=== PATIENT | male | born 1940 | race Hispanic/Latino ===

== ENCOUNTER → 2017-11-21 | Outpatient (CLI) | payer OTHER ==
[~2017-11-21] MED LIST: CILO50TA PO; CLOP75TA32 PO; EMPA25TA PO; GABA-529 PO; LISI40TA4 PO; METF500T6 PO; SIMV40TA5 PO; SITA100T12 PO
== END | disposition home or self-care (01) ==
LOC: RAH 12:23
PROVIDERS: ATTEND Internal Medicine
DX: I73.9 Peripheral vascular disease, unspecified (principal)
CPT/HCPCS: 93925

== ENCOUNTER → 2017-12-03 | Outpatient (CLI) | payer OTHER ==
[~2017-12-03] MED LIST changes: +IOPAMIDOL-370 75 ML VIAL IV ONE; +ISOVUE-370 50ML VIAL IV ONE
== END | disposition home or self-care (01) ==
LOC: RAH 08:21
PROVIDERS: ATTEND Internal Medicine Cardiovascular Disease
DX: I73.9 Peripheral vascular disease, unspecified (principal); I25.10 Atherosclerotic heart disease of native coronary artery without angina pectoris
CPT/HCPCS: 75635; Q9967 ×2

== ENCOUNTER 2017-12-08 13:02 | Emergency (ER) | payer OTHER ==
[2017-12-08] MEDS ORDERED: MORPHINE SULFATE 4 MG/1ML SYG ONE (13:39)
[2017-12-08] MEDS ORDERED: ONDANSETRON HCL 4 MG/2 ML VIAL ONE (13:39)
[2017-12-08 13:41] LABS: BASOPHILS % (AUTO) 0.7 % (0.0-5.0); EOSINOPHILS % (AUTO) 2.8 % (0.0-8.0); HEMATOCRIT 44.3 % (42-54); LYMPHOCYTES % (AUTO) 18.3 % (21.0-51.0); MEAN CORPUSCULAR HEMOGLOBIN 31.7 pg (27.0-33.0); MEAN CORPUSCULAR HGB CONC 34.4 g/dL (32.0-36.0); MEAN CORPUSCULAR VOLUME 92.2 fL (79-99); MONOCYTES % (AUTO) 8.1 % (3.0-13.0); NEUTROPHILS % (AUTO) 70.1 % (40.0-77.0); PLATELET COUNT (AUTO) 188 K/uL (130-400); RED CELL DISTRIBUTION WIDTH 13.2 % (11.0-15.5); WHITE BLOOD COUNT (AUTO) 7.9 K/uL (4.8-10.8)
[2017-12-08 13:50] LABS: CREATININE 1.2 mg/dL (0.5-1.5); POTASSIUM 4.4 mmol/L (3.5-5.1)
[2017-12-08 13:52] LABS: INR 0.98 (0.85-1.15); PARTIAL THROMBOPLASTIN TIME 26.8 SEC (26.3-35.5); PROTHROMBIN TIME 10.3 SEC (9.6-11.6)
[2017-12-08 13:55] LABS: ALBUMIN 4.2 g/dL (3.5-5.0); BILIRUBIN,TOTAL 0.5 mg/dL (0.2-1.0); TOTAL PROTEIN, SERUM 7.9 g/dL (6.0-8.3)
[2017-12-19] MEDS ORDERED: CLOP75TA32 PO (09:44)
[2017-12-19] MEDS ORDERED: GABA-529 PO (09:44)
[2017-12-19] MEDS ORDERED: METF500T6 PO (09:44)
[2017-12-19] MEDS ORDERED: SITA100T12 PO (09:44)
[2017-12-19] MEDS ORDERED: CILO50TA PO (09:44)
[2017-12-19] MEDS ORDERED: EMPA25TA PO (09:44)
[2017-12-19] MEDS ORDERED: LISI40TA4 PO (09:44)
[2017-12-19] MEDS ORDERED: SIMV40TA5 PO (09:44)
== END 2017-12-08 16:38 | disposition home or self-care (01) ==
LOC: EDH 13:02
DX: I70.221 Atherosclerosis of native arteries of extremities with rest pain, right leg (principal); F17.210 Nicotine dependence, cigarettes, uncomplicated; E11.9 Type 2 diabetes mellitus without complications; I10 Essential (primary) hypertension
CPT/HCPCS: 36415; 80053; 85025; 85610; 85730; 96374; 96375; 99284; J2270; J2405

== ENCOUNTER 2017-12-23 05:46 | Day surgery (SDC) | payer OTHER ==
[2017-12-19 09:27] VITALS: BP 155/71
[2017-12-19 09:32] LABS: BASOPHILS % (AUTO) 0.4 % (0.0-5.0); EOSINOPHILS % (AUTO) 2.5 % (0.0-8.0); HEMATOCRIT 42.2 % (42-54); LYMPHOCYTES % (AUTO) 14.5 % (21.0-51.0); MEAN CORPUSCULAR HGB CONC 34.7 g/dL (32.0-36.0); MEAN CORPUSCULAR VOLUME 92.1 fL (79-99); MONOCYTES % (AUTO) 7.8 % (3.0-13.0); NEUTROPHILS % (AUTO) 74.8 % (40.0-77.0); PLATELET COUNT (AUTO) 187 K/uL (130-400); RED BLOOD CELL COUNT(AUTO) 4.58 MIL/uL (4.50-6.20); RED CELL DISTRIBUTION WIDTH 13.5 % (11.0-15.5); WHITE BLOOD COUNT (AUTO) 8.7 K/uL (4.8-10.8)
[2017-12-19 09:46] LABS: CREATININE 1.2 mg/dL (0.5-1.5); POTASSIUM 4.8 mmol/L (3.5-5.1)
[2017-12-19 09:53] LABS: INR 0.99 (0.85-1.15); PARTIAL THROMBOPLASTIN TIME 25.7 SEC (26.3-35.5); PROTHROMBIN TIME 10.4 SEC (9.6-11.6)
[2017-12-19 09:55] LABS: APPEARANCE,URINE Clear (CLEAR); BILIRUBIN,URINE Negative (NEGATIVE); COLOR,URINE Yellow (YELLOW); GLUCOSE, URINE (UA) >=1000 mg/dL (NEGATIVE); KETONES,URINE Negative (NEGATIVE); LEUKOCYTE ESTERASE ,URINE Negative (NEGATIVE); NITRATE,URINE Negative (NEGATIVE); OCCULT BLOOD,URINE Negative (NEGATIVE); PH,URINE 5.5 (5.0-8.0); PROTEIN,URINE Negative (NEGATIVE); UROBILINOGEN,URINE 0.2 mg/dL (0.2-1.0)
[2017-12-19 10:06] LABS: BACTERIA,URINE Few /HPF (None Seen); MUCUS,URINE Rare LPF (None Seen); SQUAMOUS EPITHELIAL CELL,UR Rare /LPF (0-2); YEAST,URINE BUDDING Many /HPF (None Seen)
[2017-12-23] VITALS (13 sets, daily range): BP systolic 145–168; BP diastolic 59–81
[~2017-12-23] VITALS: Ht 160 cm; Wt 57.2 kg
[~2017-12-23 05:46] MED LIST changes: +ACETAMINOPHEN 325 MG TAB PO PRN; -IOPAMIDOL-370 75 ML VIAL IV ONE; -ISOVUE-370 50ML VIAL IV ONE; +SODIUM CHLORIDE 0.9% 500ML 500 ML IV SCH
[2017-12-23] MEDS ORDERED: SODIUM CHLORIDE 0.9% 1000ML 1,000 ML IV ONE (06:52)
[2017-12-23] MEDS ORDERED: NITROGLYCERIN 5 MG/ML 10 ML VIAL IV ONE (07:14)
[2017-12-23] MEDS ORDERED: LIDOCAINE HCL 2% 20ML ONE (07:14)
[2017-12-23] MEDS ORDERED: ISOVUE-300 100 ML VIAL IV ONE (07:14)
[2017-12-23] MEDS ORDERED: FENTANYL CITRATE PF 50 MCG/1 ML 2ML VIAL ONE (08:08)
[2017-12-23] MEDS ORDERED: MIDAZOLAM HCL 1 MG/ML 2ML VIAL ONE (08:08)
[2017-12-23] MEDS ORDERED: HEPARIN SODIUM 1000UNIT/ML 10ML VIAL ONE (08:16)
[2017-12-23] MEDS ORDERED: SODIUM CHLORIDE 0.9% 1000ML 1,000 ML IV SCH (08:34)
[2017-12-23] MEDS ORDERED: GLUCAGON 1MG KIT 1 MG ML IM PRN (08:45)
[2017-12-23] MEDS ORDERED: METOPROLOL TARTRATE 1 MG/ML 5ML VIAL IV PRN (08:45)
[2017-12-23] MEDS ORDERED: HYDRALAZINE HCL 20 MG/ML VIAL IV PRN (08:45)
[2017-12-23] MEDS ORDERED: DEXTROSE 50%-WATER 50 ML DISP.SYRIN IV PRN (08:45)
[2017-12-23] MEDS ORDERED: NITROGLYCERIN 0.4 MG SL TAB SL PRN (08:45)
[2017-12-23] MEDS ORDERED: INSULIN HUMULIN R 100 UNIT/ML 3ML SQ SCH (11:30)
== END 2017-12-23 13:08 | disposition home or self-care (01) ==
LOC: DAH 05:46
PROVIDERS: ATTEND Internal Medicine Cardiovascular Disease
DX: I70.213 Atherosclerosis of native arteries of extremities with intermittent claudication, bilateral legs (principal); E11.51 Type 2 diabetes mellitus with diabetic peripheral angiopathy without gangrene; I10 Essential (primary) hypertension; E78.00 Pure hypercholesterolemia, unspecified; I25.10 Atherosclerotic heart disease of native coronary artery without angina pectoris; F17.210 Nicotine dependence, cigarettes, uncomplicated; Z79.899 Other long term (current) drug therapy; Z79.01 Long term (current) use of anticoagulants; Z79.84 Long term (current) use of oral hypoglycemic drugs; Z90.49 Acquired absence of other specified parts of digestive tract; Z82.49 Family history of ischemic heart disease and other diseases of the circulatory system
CPT/HCPCS: 36247; 36415; 71045; 75716; 80048; 81001; 82948 ×2; 85025; 85610; 85730; 93005; A4606; C1769; C1893; C1894 ×2; J0360; J1644; J2250; J3010; J3490 ×2; J7030; Q9967; 99152; 99153

== ENCOUNTER 2018-07-18 08:06 | Observation (INO) | payer OTHER ==
[~2018-07-18] VITALS: Ht 160 cm; Wt 56.6 kg
[~2018-07-18 08:06] MED LIST changes: -ACETAMINOPHEN 325 MG TAB PO PRN; +METF-444 PO; -METF500T6 PO; -SODIUM CHLORIDE 0.9% 500ML 500 ML IV SCH
[2018-07-18 08:26] LABS: BASOPHILS % (AUTO) 0.6 % (0.0-5.0); HEMATOCRIT 36.3 % (42-54); MEAN CORPUSCULAR HEMOGLOBIN 31.8 pg (27.0-33.0); MEAN CORPUSCULAR HGB CONC 35.1 g/dL (32.0-36.0); MEAN CORPUSCULAR VOLUME 90.4 fL (79-99); MONOCYTES % (AUTO) 7.5 % (3.0-13.0); NEUTROPHILS % (AUTO) 84.9 % (40.0-77.0); PLATELET COUNT (AUTO) 163 K/uL (130-400); RED BLOOD CELL COUNT(AUTO) 4.01 MIL/uL (4.50-6.20); RED CELL DISTRIBUTION WIDTH 13.1 % (11.0-15.5); WHITE BLOOD COUNT (AUTO) 7.1 K/uL (4.8-10.8)
[2018-07-18 08:41] LABS: CREATININE 1.2 mg/dL (0.5-1.5)
[2018-07-18 08:46] LABS: ALBUMIN 3.3 g/dL (3.5-5.0); BILIRUBIN,TOTAL 0.7 mg/dL (0.2-1.0); TOTAL PROTEIN, SERUM 6.9 g/dL (6.0-8.3)
[2018-07-18 08:59] LABS: INR 1.13 (0.85-1.15); PARTIAL THROMBOPLASTIN TIME 32.7 SEC (26.3-35.5); PROTHROMBIN TIME 11.8 SEC (9.6-11.6)
[2018-07-18 10:22] LABS: APPEARANCE,URINE Cloudy (CLEAR); BILIRUBIN,URINE Negative (NEGATIVE); COLOR,URINE Yellow (YELLOW); GLUCOSE, URINE (UA) 250 mg/dL (NEGATIVE); KETONES,URINE Negative (NEGATIVE); LEUKOCYTE ESTERASE ,URINE Large (NEGATIVE); NITRATE,URINE Negative (NEGATIVE); OCCULT BLOOD,URINE Moderate (NEGATIVE); PH,URINE 6.5 (5.0-8.0); PROTEIN,URINE POS 2+ (NEGATIVE)
[2018-07-18 10:29] LABS: AMPHET/METH SCREEN,URINE NEGATIVE (NEGATIVE); BARBITURATE SCREEN, URINE NEGATIVE (NEGATIVE); BENZODIAZEPINES SCREEN,URINE NEGATIVE (NEGATIVE); CANNABINOID SCREEN,URINE NEGATIVE (NEGATIVE); COCAINE SCREEN,URINE NEGATIVE (NEGATIVE); OPIATE SCREEN,URINE NEGATIVE (NEGATIVE); PHENCYCLIDINE SCREEN,URINE NEGATIVE (NEGATIVE)
[2018-07-18 10:37] LABS: BACTERIA,URINE Moderate /HPF (None Seen); MUCUS,URINE Few LPF (None Seen); SQUAMOUS EPITHELIAL CELL,UR Few /HPF (0-2); WBC,URINE 51-100 /HPF (0-1); YEAST,URINE BUDDING Moderate /HPF (None Seen)
[2018-07-18] MEDS ORDERED: SODIUM CHLORIDE 0.9% 500ML 500 ML IV ONE (10:42)
[2018-07-18] MEDS ORDERED: SODIUM CHLORIDE 0.9% 100 ML IV ONE (10:42)
[2018-07-18] MEDS ORDERED: CEFTRIAXONE SODIUM 1 GM ONE (10:42)
[2018-07-18] MEDS ORDERED: LISINOPRIL 40 MG TABLET PO SCH (12:30)
[2018-07-18] MEDS ORDERED: LISINOPRIL 5 MG TABLET ONE (12:34)
[2018-07-18] MEDS ORDERED: GADODIAMIDE 10 MMOL/20 ML ML IV ONE (12:40)
[2018-07-18] MEDS ORDERED: DEXTROSE 50%-WATER 50 ML DISP.SYRIN IV PRN (13:00)
[2018-07-18] MEDS ORDERED: GLUCAGON 1MG KIT 1 MG ML IM PRN (13:00)
[2018-07-18 16:00] VITALS: BP 155/79
[2018-07-18] MEDS ORDERED: AMLO-343 PO (17:38)
[2018-07-18] MEDS ORDERED: GABAPENTIN 100 MG CAPSULE PO PRN (17:45)
[2018-07-18] MEDS ORDERED: AMLO10TA4 PO (17:46)
[2018-07-18 19:35] VITALS: BP 142/77
[2018-07-18] MEDS: INSULIN R PO SS1 SQ SCH (21:00)
[2018-07-18] MEDS: METFORMIN HCL 500 MG TABLET PO SCH (22:50)
[2018-07-18] MEDS: CILOSTAZOL 100 MG TAB PO SCH (22:50)
[2018-07-18 23:28] VITALS: BP 132/92
[2018-07-19 04:15] VITALS: BP 126/63
[2018-07-19] MEDS: INSULIN R PO SS1 SQ SCH ×4 (06:11→21:00)
[2018-07-19 07:45] VITALS: BP 126/67
[2018-07-19] MEDS: AMLODIPINE BESYLATE 5 MG TAB PO SCH (08:59)
[2018-07-19] MEDS: CILOSTAZOL 100 MG TAB PO SCH ×2 (08:59→21:17)
[2018-07-19] MEDS: SIMVASTATIN 20 MG TABLET PO SCH (09:00)
[2018-07-19] MEDS: EMPAGLIFLOZIN 25 MG PO SCH (09:00)
[2018-07-19] MEDS: CLOPIDOGREL BISULFATE 75 MG TAB PO SCH (09:00)
[2018-07-19] MEDS: LISINOPRIL 40 MG TABLET PO SCH (09:00)
[2018-07-19] MEDS: METFORMIN HCL 500 MG TABLET PO SCH ×2 (09:00→17:17)
[2018-07-19] MEDS: LINAGLIPTIN 5 MG TABLET PO SCH (11:37)
[2018-07-19 12:10] VITALS: BP 113/63
[2018-07-19] MEDS: ZOSYN 3.375GM+NS 50ML 50 ML IV SCH ×2 (14:36→19:30)
[2018-07-19] MEDS: SODIUM CHLORIDE 0.9% 1000ML 1,000 ML IV SCH (14:36)
[2018-07-19 17:14] VITALS: BP 118/63
[2018-07-19 20:04] VITALS: BP 111/59
[2018-07-20 00:08] VITALS: BP 124/59
[2018-07-20] MEDS: SODIUM CHLORIDE 0.9% 1000ML 1,000 ML IV SCH ×2 (01:50→16:12)
[2018-07-20] MEDS: ZOSYN 3.375GM+NS 50ML 50 ML IV SCH ×2 (04:03→12:26)
[2018-07-20 04:08] VITALS: BP 122/63
[2018-07-20 05:37] LABS: HEMATOCRIT 33.4 % (42-54); MEAN CORPUSCULAR HEMOGLOBIN 31.7 pg (27.0-33.0); MEAN CORPUSCULAR HGB CONC 35.5 g/dL (32.0-36.0); MEAN CORPUSCULAR VOLUME 89.2 fL (79-99); PLATELET COUNT (AUTO) 151 K/uL (130-400); RED BLOOD CELL COUNT(AUTO) 3.74 MIL/uL (4.50-6.20); RED CELL DISTRIBUTION WIDTH 13.1 % (11.0-15.5); WHITE BLOOD COUNT (AUTO) 6.2 K/uL (4.8-10.8)
[2018-07-20 05:54] LABS: CREATININE 1.1 mg/dL (0.5-1.5); POTASSIUM 3.7 mmol/L (3.5-5.1)
[2018-07-20] MEDS: INSULIN R PO SS1 SQ SCH ×3 (06:11→16:49)
[2018-07-20 07:40] VITALS: BP 127/71
[2018-07-20] MEDS: CILOSTAZOL 100 MG TAB PO SCH (08:55)
[2018-07-20] MEDS: METFORMIN HCL 500 MG TABLET PO SCH ×2 (08:55→16:16)
[2018-07-20] MEDS: LINAGLIPTIN 5 MG TABLET PO SCH (08:55)
[2018-07-20] MEDS: AMLODIPINE BESYLATE 5 MG TAB PO SCH (08:55)
[2018-07-20] MEDS: CLOPIDOGREL BISULFATE 75 MG TAB PO SCH (08:55)
[2018-07-20] MEDS: LISINOPRIL 40 MG TABLET PO SCH (08:55)
[2018-07-20] MEDS: SIMVASTATIN 20 MG TABLET PO SCH (08:56)
[2018-07-20] MEDS: EMPAGLIFLOZIN 25 MG PO SCH (08:56)
[2018-07-20 12:18] VITALS: BP 145/78
[2018-07-20 16:05] VITALS: BP 112/59
== END 2018-07-20 18:40 | disposition home or self-care (01) ==
LOC: EDH 08:06 → EDHIP 12:37 → 3AH 14:09
PROVIDERS: ADMIT Internal Medicine; ATTEND Internal Medicine
DX: R41.82 Altered mental status, unspecified (principal); E11.51 Type 2 diabetes mellitus with diabetic peripheral angiopathy without gangrene; I10 Essential (primary) hypertension; N39.0 Urinary tract infection, site not specified; W19.XXXA Unspecified fall, initial encounter; Y93.89 Activity, other specified; Y92.89 Other specified places as the place of occurrence of the external cause; Y99.8 Other external cause status; Z87.891 Personal history of nicotine dependence; Z86.73 Personal history of transient ischemic attack (TIA), and cerebral infarction without residual deficits; Z90.49 Acquired absence of other specified parts of digestive tract; Z79.01 Long term (current) use of anticoagulants
CPT/HCPCS: 36415 ×2; 70450; 70553; 71045; 80048; 80053; 80305; 81001; 82140; 82948 ×9; 83605; 83690; 84484; 85025; 85027; 85610; 85730; 87040 ×2; 87077; 87088; 93005; 96361; 96365; 96366 ×2; 99285; A9579; G0378 ×54; J0696; J1815 ×5; J2543 ×4; J7040

== ENCOUNTER 2018-10-17 14:11 | Observation (INO) | payer OTHER ==
[~2018-10-17] VITALS: Ht 177.8 cm; Wt 54.5 kg
[~2018-10-17 14:11] MED LIST changes: +AMLO10TA4 PO
[2018-10-17] MEDS ORDERED: SODIUM CHLORIDE 0.9% 1000ML 1,000 ML IV ONE (14:44)
[2018-10-17 15:01] LABS: BASOPHILS % (AUTO) 0.4 % (0.0-5.0); EOSINOPHILS % (AUTO) 1.6 % (0.0-8.0); HEMATOCRIT 38.3 % (42-54); LYMPHOCYTES % (AUTO) 13.7 % (21.0-51.0); MEAN CORPUSCULAR HEMOGLOBIN 30.8 pg (27.0-33.0); MEAN CORPUSCULAR HGB CONC 33.9 g/dL (32.0-36.0); MEAN CORPUSCULAR VOLUME 90.6 fL (79-99); MONOCYTES % (AUTO) 7.7 % (3.0-13.0); NEUTROPHILS % (AUTO) 76.6 % (40.0-77.0); PLATELET COUNT (AUTO) 167 K/uL (130-400); RED BLOOD CELL COUNT(AUTO) 4.22 MIL/uL (4.50-6.20); RED CELL DISTRIBUTION WIDTH 12.9 % (11.0-15.5); WHITE BLOOD COUNT (AUTO) 7.9 K/uL (4.8-10.8)
[2018-10-17 15:06] LABS: APPEARANCE,URINE Cloudy (CLEAR); BILIRUBIN,URINE Negative (NEGATIVE); COLOR,URINE Yellow (YELLOW); GLUCOSE, URINE (UA) >=1000 mg/dL (NEGATIVE); KETONES,URINE Negative (NEGATIVE); LEUKOCYTE ESTERASE ,URINE Small (NEGATIVE); NITRATE,URINE Negative (NEGATIVE); OCCULT BLOOD,URINE Large (NEGATIVE); PH,URINE 5.5 (5.0-8.0); PROTEIN,URINE POS 2+ (NEGATIVE); UROBILINOGEN,URINE 0.2 mg/dL (0.2-1.0)
[2018-10-17 15:17] LABS: ALBUMIN 3.3 g/dL (3.5-5.0); BILIRUBIN,TOTAL 0.5 mg/dL (0.2-1.0); CREATININE 1.3 mg/dL (0.5-1.5); POTASSIUM 4.4 mmol/L (3.5-5.1); TOTAL PROTEIN, SERUM 6.9 g/dL (6.0-8.3)
[2018-10-17 15:35] LABS: RBC,URINE 26-50 /HPF (0-1)
[2018-10-17 15:36] LABS: BACTERIA,URINE Rare /HPF (None Seen); WBC,URINE >100 /HPF (0-1)
[2018-10-17] MEDS ORDERED: INSULIN HUMULIN R 100 UNIT/ML 3ML ONE (15:46)
[2018-10-17] MEDS ORDERED: CEFTRIAXONE SODIUM 1 GM ONE (18:16)
[2018-10-17] MEDS ORDERED: ZOSYN 3.375GM+NS 50ML 50 ML IV ONE (22:06)
[2018-10-17] MEDS ORDERED: SODIUM CHLORIDE 0.9% 100 ML IV ONE (22:07)
[2018-10-17 23:45] VITALS: BP 162/65
[2018-10-18 04:00] VITALS: BP 146/72
[2018-10-18] MEDS: SODIUM CHLORIDE 0.9% 1000ML 1,000 ML IV SCH ×2 (04:58→20:56)
[2018-10-18 05:19] LABS: HEMATOCRIT 36.1 % (42-54); MEAN CORPUSCULAR HEMOGLOBIN 31.3 pg (27.0-33.0); MEAN CORPUSCULAR HGB CONC 34.6 g/dL (32.0-36.0); MEAN CORPUSCULAR VOLUME 90.6 fL (79-99); PLATELET COUNT (AUTO) 162 K/uL (130-400); RED BLOOD CELL COUNT(AUTO) 3.99 MIL/uL (4.50-6.20); RED CELL DISTRIBUTION WIDTH 12.9 % (11.0-15.5); WHITE BLOOD COUNT (AUTO) 7.9 K/uL (4.8-10.8)
[2018-10-18 05:27] LABS: POTASSIUM 3.6 mmol/L (3.5-5.1)
[2018-10-18] MEDS ORDERED: DEXTROSE 50%-WATER 50 ML DISP.SYRIN IV PRN (06:30)
[2018-10-18] MEDS ORDERED: GLUCAGON 1MG KIT 1 MG ML IM PRN (06:30)
[2018-10-18] MEDS ORDERED: INSULIN HUMULIN R 100 UNIT/ML 3ML SQ SCH (07:30)
[2018-10-18] MEDS: ATORVASTATIN CALCIUM 20 MG TABLET PO SCH (09:00)
--- NOTE | 2018-10-18 16:52 | NUR ---
INITIAL: Met with pt and spouse this afternoon to discuss dcp. Pt states that he lives w spouse and dtr. Prior to admission was using a cane for ambulation, completes ADLs w assist. States was still driving prior to admission. 0HH services. Pt and spouse state they feel safe and comfortable to return home at [place]. Will continue to follow and wait for Md recommendations. Addendum: 10/18/18 at 1653 by KAPIL FRAZIER CM Amended: Links added.
[2018-10-18] MEDS ORDERED: GABAPENTIN 100 MG CAPSULE PO PRN (17:30)
[2018-10-18] MEDS: CLONIDINE HCL 0.1 MG TABLET PO PRN (18:05)
[2018-10-18] MEDS: INSULIN HUMULIN R 100 UNIT/ML 3ML SQ SCH ×2 (18:11→20:54)
[2018-10-18 19:26] VITALS: BP 184/76
[2018-10-18 20:13] VITALS: BP 162/74
[2018-10-18] MEDS: CEFTRIAXONE SODIUM 1 GM IVP SCH (20:44)
[2018-10-18] MEDS: INSULIN GLARGINE 100 UNITS/ML 10 ML VIAL SQ SCH (20:55)
[2018-10-18 23:25] VITALS: BP 126/60
[2018-10-19] VITALS (7 sets, daily range): BP systolic 122–197; BP diastolic 57–78
[2018-10-19] MEDS: CLONIDINE HCL 0.1 MG TABLET PO PRN ×2 (04:10→12:24)
[2018-10-19] MEDS: INSULIN HUMULIN R 100 UNIT/ML 3ML SQ SCH ×4 (05:59→21:41)
[2018-10-19 06:12] LABS: BASOPHILS % (AUTO) 0.2 % (0.0-5.0); EOSINOPHILS % (AUTO) 0.6 % (0.0-8.0); HEMATOCRIT 34.2 % (42-54); LYMPHOCYTES % (AUTO) 13.4 % (21.0-51.0); MEAN CORPUSCULAR HEMOGLOBIN 30.6 pg (27.0-33.0); MEAN CORPUSCULAR HGB CONC 34.3 g/dL (32.0-36.0); MEAN CORPUSCULAR VOLUME 89.1 fL (79-99); MONOCYTES % (AUTO) 7.6 % (3.0-13.0); NEUTROPHILS % (AUTO) 78.2 % (40.0-77.0); PLATELET COUNT (AUTO) 156 K/uL (130-400); RED BLOOD CELL COUNT(AUTO) 3.84 MIL/uL (4.50-6.20); RED CELL DISTRIBUTION WIDTH 12.9 % (11.0-15.5); WHITE BLOOD COUNT (AUTO) 9.8 K/uL (4.8-10.8)
[2018-10-19 06:19] LABS: POTASSIUM 3.6 mmol/L (3.5-5.1)
[2018-10-19] MEDS: ENOXAPARIN SODIUM 30 MG/0.3 ML SQ SCH (08:47)
[2018-10-19] MEDS: AMLODIPINE BESYLATE 5 MG TAB PO SCH (08:47)
[2018-10-19] MEDS: CLOPIDOGREL BISULFATE 75 MG TAB PO SCH (08:47)
[2018-10-19] MEDS: CILOSTAZOL 100 MG TAB PO SCH ×2 (08:48→16:46)
[2018-10-19] MEDS: LISINOPRIL 40 MG TABLET PO SCH (08:48)
[2018-10-19] MEDS: ATORVASTATIN CALCIUM 20 MG TABLET PO SCH (08:48)
[2018-10-19] MEDS: SODIUM CHLORIDE 0.9% 1000ML 1,000 ML IV SCH ×2 (08:49→21:43)
[2018-10-19] MEDS: CEFTRIAXONE SODIUM 1 GM IVP SCH (20:13)
--- NOTE | 2018-10-19 20:15 | NUR ---
MEDS PT ALREADY IN BED, RESTING, DOSING OFF TO SLEEP. DUE MEDS ADMINISTERED, TOLERATED WELL. KEPT RESTED AND COMFORTABLE. CALL LIGHT WITHIN REACH. FAMILY AT BE. SITTER BY PT'S DOOR. WILL KEEP ON CLOSE WATCH.
[2018-10-19] MEDS: INSULIN GLARGINE 100 UNITS/ML 10 ML VIAL SQ SCH (21:42)
--- NOTE | 2018-10-19 22:00 | NUR ---
ROUNDS PT ALREADY ASLEEP WITH RESPIRATIONS EVEN AND UNLABORED. NO NOTED DISTRESS. KEPT UNDISTURBED FOR NOW. WILL CONTINUE TO MONITOR. CALL LIGHT WITHIN REACH. SPOUSE ASLEEP AT BEDSIDE.
--- NOTE | 2018-10-20 02:00 | NUR ---
ROUNDS PT RESTING WELL, FAIRLY ASLEEP WITH RESPIRATIONS EVEN AND UNLABORED. NO NOTED DISTRESS. KEPT UNDISTURBED FOR NOW. WILL CONTINUE TO MONITOR.
[2018-10-20 04:21] VITALS: BP 117/54
--- NOTE | 2018-10-20 05:21 | NUR ---
ROUNDS PT RESTING WELL, SLEPT AT LONG INTERVALS DURING THE SHIFT. NO DISTRESS NOTED. KEPT COMFORTABLE IN BED. FOR MORE CARE.
[2018-10-20] MEDS: INSULIN HUMULIN R 100 UNIT/ML 3ML SQ SCH ×2 (06:20→12:00)
[2018-10-20] MEDS: CILOSTAZOL 100 MG TAB PO SCH (06:20)
[2018-10-20] MEDS: AMLODIPINE BESYLATE 5 MG TAB PO SCH (08:59)
[2018-10-20] MEDS: LISINOPRIL 40 MG TABLET PO SCH (08:59)
[2018-10-20] MEDS: CLOPIDOGREL BISULFATE 75 MG TAB PO SCH (08:59)
[2018-10-20] MEDS: ENOXAPARIN SODIUM 30 MG/0.3 ML SQ SCH (08:59)
[2018-10-20] MEDS ORDERED: INSULIN HUMULIN R 100 UNIT/ML 3ML SQ ONE (11:53)
[2018-10-20 11:59] VITALS: BP 174/77
[2018-10-20] MEDS: CLONIDINE HCL 0.1 MG TABLET PO PRN (11:59)
--- NOTE | 2018-10-20 13:30 | NUR ---
PATIENT AND FAMILY GIVEN DISCHARGE INSTRUCTIONS. PATIENT AND FAMILY VERBALIZED UNDERSTANDING OF ALL EDUCATION GIVEN VIA TEACH BACK. INCLUDING NEW PRESCRIBED MEDICATIONS AND FOLLOW UP APPOINTMENTS. IV DISCONTINUED, CATHETER INTACT. ALL BELONGINGS TAKEN WITH. NO DISTRESS NOTED UPON DISCHARGE. PATIENT LEFT VIA WHEELCHAIR TO PRIVATE CAR, PCP AND AT SIDE.
[2018-10-20] MEDS ORDERED: ATORVASTATIN CALCIUM 20 MG TABLET PO SCH (21:00)
== END 2018-10-20 13:30 | disposition home or self-care (01) ==
LOC: EDH 14:11 → INTOOBSV 17:49 → EDHIP 17:49 → 3DH 22:30
PROVIDERS: ADMIT Internal Medicine; ATTEND Internal Medicine
DX: R41.82 Altered mental status, unspecified (principal); E78.5 Hyperlipidemia, unspecified; I10 Essential (primary) hypertension; E11.65 Type 2 diabetes mellitus with hyperglycemia; Z90.49 Acquired absence of other specified parts of digestive tract
CPT/HCPCS: 36415 ×3; 70450; 80048 ×2; 80053; 81001; 82948 ×13; 83605; 85025 ×2; 85027; 87040; 87088; 93005; 93306; 96361 ×3; 96372 ×3; 96374; 96376; 97116; 97161; 99291; A4218; G0378 ×68; G8978; G8979; G8980; G8981; G8982; G8983; J0696 ×3; J1650 ×2; J1815 ×7; J2543; J7030 ×2

== ENCOUNTER 2019-05-01 18:40 | Emergency (ER) | payer OTHER ==
[~2019-05-01 18:40] MED LIST changes: -EMPA25TA PO; -METF-444 PO; -SITA100T12 PO
[2019-05-01 19:25] LABS: APPEARANCE,URINE Turbid (CLEAR); BILIRUBIN,URINE Negative (NEGATIVE); COLOR,URINE Yellow (YELLOW); GLUCOSE, URINE (UA) 250 mg/dL (NEGATIVE); KETONES,URINE Negative (NEGATIVE); LEUKOCYTE ESTERASE ,URINE Large (NEGATIVE); NITRATE,URINE Negative (NEGATIVE); OCCULT BLOOD,URINE Large (NEGATIVE); PROTEIN,URINE POS 2+ mg/dL (NEGATIVE); UROBILINOGEN,URINE 0.2 mg/dL (0.2-1.0)
[2019-05-01 19:32] LABS: AMPHET/METH SCREEN,URINE NEGATIVE (NEGATIVE); BARBITURATE SCREEN, URINE NEGATIVE (NEGATIVE); BENZODIAZEPINES SCREEN,URINE NEGATIVE (NEGATIVE); CANNABINOID SCREEN,URINE NEGATIVE (NEGATIVE); COCAINE SCREEN,URINE NEGATIVE (NEGATIVE); OPIATE SCREEN,URINE NEGATIVE (NEGATIVE); PHENCYCLIDINE SCREEN,URINE NEGATIVE (NEGATIVE)
[2019-05-01 19:46] LABS: RBC,URINE >100 /HPF (0-1); WBC,URINE >100 /HPF (0-1)
[2019-05-01 19:48] LABS: BACTERIA,URINE Few /HPF (None Seen); MUCUS,URINE Rare LPF (None Seen)
[2019-05-01 19:48] LABS: BASOPHILS % (AUTO) 0.3 % (0.0-5.0); EOSINOPHILS % (AUTO) 3.3 % (0.0-8.0); HEMATOCRIT 36.5 % (42-54); LYMPHOCYTES % (AUTO) 13.7 % (21.0-51.0); MEAN CORPUSCULAR HGB CONC 34.5 g/dL (32.0-36.0); MEAN CORPUSCULAR VOLUME 89.9 fL (79-99); MONOCYTES % (AUTO) 10.3 % (3.0-13.0); NEUTROPHILS % (AUTO) 72.4 % (40.0-77.0); NUCLEATED RED BLOOD CELLS 0.1 % (0.0-0.19); PLATELET COUNT (AUTO) 182 K/uL (130-400); RED BLOOD CELL COUNT(AUTO) 4.07 MIL/uL (4.50-6.20); RED CELL DISTRIBUTION WIDTH 13.3 % (11.0-15.5); WHITE BLOOD COUNT (AUTO) 7.7 K/uL (4.8-10.8)
[2019-05-01 20:08] LABS: B-TYPE NATRIURETIC PEPTIDE 9 pg/mL (0-100)
[2019-05-01 20:12] LABS: POTASSIUM 4.9 mmol/L (3.5-5.1)
[2019-05-01 20:16] LABS: ALBUMIN 3.3 g/dL (3.5-5.0); BILIRUBIN,TOTAL 0.2 mg/dL (0.2-1.0); TOTAL PROTEIN, SERUM 6.8 g/dL (6.0-8.3)
[2019-05-01 20:52] LABS: INR 0.97 (0.85-1.15); PARTIAL THROMBOPLASTIN TIME 26.9 SEC (26.3-35.5); PROTHROMBIN TIME 10.2 SEC (9.6-11.6)
[2019-05-01] MEDS ORDERED: SODIUM CHLORIDE 0.9% 1000ML 1,000 ML IV ONE ×2 (21:25→21:58)
[2019-05-01] MEDS ORDERED: LEVOFLOXACIN 500 MG/D5W 100 ML 100 ML ONE (21:25)
[2019-05-01] MEDS ORDERED: CEFTRIAXONE SODIUM 1 GM ONE (21:57)
== END 2019-05-01 23:12 | disposition home or self-care (01) ==
LOC: EDH 18:40
DX: N39.0 Urinary tract infection, site not specified (principal); E11.9 Type 2 diabetes mellitus without complications; I10 Essential (primary) hypertension; R41.82 Altered mental status, unspecified; E78.5 Hyperlipidemia, unspecified; Z90.49 Acquired absence of other specified parts of digestive tract; Z72.0 Tobacco use
CPT/HCPCS: 36415; 70450; 72125; 80053; 80305; 81001; 82140; 82550; 83605; 83880; 84484; 85025; 85610; 85730; 87040 ×2; 87088; 93005; 96365; 96375; 99285; J0696; J1956; J7030 ×2

== ENCOUNTER 2019-06-10 10:01 | Inpatient (IN) | payer OTHER | END 2019-06-26 14:00 | disposition home or self-care (01) | LOC: EDH 10:01 → 2CH 06-17 18:04 → 2AH 06-19 17:46 → EDHIP 14:16 → 3AH 06-25 22:13 → 4CH 19:46 | DX: A41.9 Sepsis, unspecified organism (principal); G93.41 Metabolic encephalopathy; E11.52 Type 2 diabetes mellitus with diabetic peripheral angiopathy with gangrene; L03.115 Cellulitis of right lower limb; N17.9 Acute kidney failure, unspecified; M62.82 Rhabdomyolysis; N39.0 Urinary tract infection, site not specified; M86.9 Osteomyelitis, unspecified; E87.0 Hyperosmolality and hypernatremia; F17.200 Nicotine dependence, unspecified, uncomplicated; L97.509 Non-pressure chronic ulcer of other part of unspecified foot with unspecified severity; E11.22 Type 2 diabetes mellitus with diabetic chronic kidney disease; I12.9 Hypertensive chronic kidney disease with stage 1 through stage 4 chronic kidney disease, or unspecified chronic kidney disease; D18.1 Lymphangioma, any site; E11.69 Type 2 diabetes mellitus with other specified complication; E11.621 Type 2 diabetes mellitus with foot ulcer; E86.0 Dehydration ==